=== PATIENT | male | born 1975 | race Hispanic/Latino ===

== ENCOUNTER 2022-07-19 16:11 | Outpatient (CLI) | payer SELFPAY | END 2022-07-19 16:12 | disposition home or self-care (01) | LOC: MADRAD 16:11 | PROVIDERS: ATTEND Nurse Practitioner Family | DX: S39.012A Strain of muscle, fascia and tendon of lower back, initial encounter (principal); M43.8X6 Other specified deforming dorsopathies, lumbar region | CPT/HCPCS: 72100 ==